=== PATIENT | female | born 1995 | race Caucasian/White ===

== ENCOUNTER → 2019-02-20 11:10 | Outpatient (CLI) | payer OTHER, SELFPAY ==
[2019-02-20 11:42] LABS: Basophils # 0.1 K/mm3 (0-0.2); Basophils % 0.2 % (0.1-2.0); Eosinophils # 0.4 K/mm3 (0.0-0.4); Eosinophils % 1.8 % (0.1-12.0); Hematocrit 45.3 % (37.0-47.0); Hemoglobin 14.2 g/dL (12.2-16.2); Lymphocytes # 3.6 K/mm3 (0.7-4.5); Lymphocytes % 18.9 % (10-50); Mean Corpuscular HGB Conc 31.4 g/dL (31.8-35.4); Mean Corpuscular Hemoglobin 27.4 pg (27.0-31.2); Mean Corpuscular Volume 87.4 fl (81-99); Mean Platelet Volume 8.3 fl (7.4-10.4); Monocytes # 1.6 K/mm3 (0.1-1.0); Monocytes % 8.3 % (1.7-9.3); Neutrophils # 13.3 K/mm3 (1.8-7.8); Neutrophils % 70.6 % (37.0-80.0); Platelet Count 466 K/mm3 (142-424); Red Blood Count 5.18 M/mm3 (4.20-5.40); Red Cell Distribution Width 13.6 % (11.5-17.5); White Blood Count 18.8 K/mm3 (4.8-10.8)
[2019-02-20 11:45] LABS: MANUAL DIFFERENTIAL MANUAL DIFFERENTIAL (MANUAL DIFF)
[2019-02-20 14:13] LABS: Alanine Aminotransferase 21 U/L (12-78); Albumin Level 3.6 gm/dL (3.4-5.0); Albumin/Globulin Ratio 0.8 (1.1-1.8); Alkaline Phosphatase 66 U/L (46-116); Anion Gap 16.3 mEq/L (5-15); Bilirubin,Total 0.3 mg/dL (0.2-1.0); Blood Urea Nitrogen 9 mg/dL (7-18); Calcium 9.6 mg/dL (8.5-10.1); Carbon Dioxide 25 mmol/L (21.0-32.0); Chloride 104 mmol/L (98-107); Creatinine,Serum 0.74 mg/dL (0.55-1.02); Estimated Glomerular Filt Rate 96 ml/min (>60); GFR (African American) 116 ML/MIN (>60); Globulin 4.3 gm/dl (1.3-3.2); Glucose 74 mg/dL (74-106); Sodium 141 mmol/L (136-145); Total Protein,Serum 7.9 gm/dL (6.4-8.2)
[2019-02-20 14:22] LABS: Aspartate Amino Transferase 15 U/L (15-37); Potassium 4.3 mmoL/L (3.5-5.1)
[2019-02-20 16:20] LABS: HCG Qualitative, Serum Negative (Negative)
[2019-02-20 16:30] LABS: Lymphocytes % 29 % (10-50); Monocytes % 11 % (2-9); Neutrophils % 60 % (42-76); Platelet Estimate Slight Increase; RBC Morphology Normal; Total Cells Counted 100
== END ==
PROVIDERS: Visit Provider Obstetrics & Gynecology
DX: Z01.818 Encounter for other preprocedural examination (principal); Z30.09 Encounter for other general counseling and advice on contraception
CPT/HCPCS: 36415; 80053; 84703; 85007; 85025

== ENCOUNTER → 2019-03-15 15:30 | Outpatient (CLI) | payer OTHER, SELFPAY ==
[2019-03-15 16:44] LABS: Basophils # 0.1 K/mm3 (0-0.2); Basophils % 0.7 % (0.1-2.0); Eosinophils # 0.4 K/mm3 (0.0-0.4); Hematocrit 43.4 % (37.0-47.0); Hemoglobin 13.1 g/dL (12.2-16.2); Lymphocytes # 3.2 K/mm3 (0.7-4.5); Lymphocytes % 25.2 % (10-50); Mean Corpuscular HGB Conc 30.2 g/dL (31.8-35.4); Mean Corpuscular Hemoglobin 27.4 pg (27.0-31.2); Mean Corpuscular Volume 90.7 fl (81-99); Mean Platelet Volume 9.7 fl (7.4-10.4); Monocytes # 0.7 K/mm3 (0.1-1.0); Monocytes % 5.6 % (1.7-9.3); Neutrophils # 8.4 K/mm3 (1.8-7.8); Neutrophils % 65.5 % (37.0-80.0); Platelet Count 408 K/mm3 (142-424); Red Blood Count 4.79 M/mm3 (4.20-5.40); Red Cell Distribution Width 14.2 % (11.5-17.5); White Blood Count 12.8 K/mm3 (4.8-10.8)
[2019-03-15 17:53] LABS: HCG Qualitative, Serum Negative (Negative)
[2019-03-15 21:06] LABS: Anion Gap 14.9 mEq/L (5-15); Blood Urea Nitrogen 8 mg/dL (7-18); Calcium 8.9 mg/dL (8.5-10.1); Carbon Dioxide 25 mmol/L (21.0-32.0); Chloride 106 mmol/L (98-107); Creatinine,Serum 0.86 mg/dL (0.55-1.02); Estimated Glomerular Filt Rate 80 ml/min (>60); GFR (African American) 97 ML/MIN (>60); Glucose 85 mg/dL (74-106); Potassium 3.9 mmoL/L (3.5-5.1); Sodium 142 mmol/L (136-145)
== END ==
PROVIDERS: Visit Provider Obstetrics & Gynecology
DX: Z01.818 Encounter for other preprocedural examination (principal)
CPT/HCPCS: 36415; 80048; 84703; 85025

== ENCOUNTER 2020-10-19 11:37 | Emergency (ER) | payer MEDICAID, SELFPAY ==
[2020-10-19 11:40] VITALS: BP 140/114; PULSE 85; RESP 18; TEMP 36.6; O2SAT 97; BMI 49.5
[2020-10-19 12:15] LABS: UTC Strep Screen (Rapid) Negative (Negative)
--- NOTE | 2020-10-19 12:21 | HMH.EDUTC ---
[facility] [place] Disposition Clinical Impression: Allergic rhinitis Qualifiers: Allergic rhinitis trigger: unspecified Allergic rhinitis seasonality: unspecified Qualified Code(s): J30.9 - Allergic rhinitis, unspecified Disposition: Home, Self-Care Condition on Discharge: Good Instructions: Sore Throat, Allergic Rhinitis Additional Instructions: *Monitor Temp, Over the counter Motrin or Tylenol as directed/as needed Tylenol every 4 hours and Motrin every 6 hours (as long as your family doctor has told you that you can take it) for fever or pain. and straight to ER if unable to lower temp less than 101.0 after medication given *Warm salt water gargles may help to soothe the throat *Throat Lozenges *Warm fluids like tea with honey may help to soothe the throat *Sleep elevated *Humidifier/Vaporizer *Flonase 2 sprays in each nostril daily but be aware that it may take 2-3 days before you notice improvement Your throat swab was sent for culture. Those results are typically sent to your primary care. Be sure to follow up in 2-3 days with your family doctor/primary care physician if no improvement so they can review those result and treat if necessary. If you don?t have a primary care doctor, I recommend you get one but in the mean time, you will have to return to a walk in clinic Follow up IMMEDIATELY for new or worsening symptoms or no Noticeable improvement over the next 48-72 hours. 911 for difficulty breathing or swallowing Prescriptions: Fluticasone Propionate [Flonase 50mcg nasal spray 16gm] 1 spr NS DAILY #1 bottle Transmission Status: Received by [id number] Referrals: Delma Cespedes [Primary Care Provider] - As needed Time of Disposition: 12:30 Medical Decision Making - Abe Inquiry Pt receiving controlled substance: No Abe was queried for this patient: No Vital Signs: 10/19/20 11:40 10/19/20 12:33 Temperature 97.9 F 97.9 F Temperature Source Oral Pulse Rate 85 Pulse Rate [Right Brachial] 85 Respiratory Rate 18 18 Blood Pressure 109/67 L Blood Pressure [Right Arm] 140/114 H Blood Pressure Mean [Right Arm] 122 Blood Pressure Source [Right Arm] Automatic Cuff Blood Pressure Position [Right Arm] Sitting 02 Sat by Pulse Oximetry 97 Oxygen Delivery Method Room Air - Lab Data Lab results reviewed: Yes: I reviewed the patient's lab results. Lab Results 10/19/20 11:38: Strep [facility] Negative Orders (Tests/Meds): ORDERS Category Date Time Status Strep Screen Confirmation Stat Micro 10/19/20 11:38 Received [facility] [place] HPI - General Stated complaint: sore throat Time Seen by Provider: 10/19/20 12:21 Mode of Arrival: Ambulatory Source of Information: Patient Limitations: No Limitations Description of Symptoms (Recalled from Triage Doc. by RN): PATIENT C/O SORE THROAT SINCE YESTERDAY HEENT Symptoms (Recalled from RN notes): Yes Resp Symptoms (Recalled from RN notes): No Skin Symptoms (Recalled from RN notes): No MS Symptoms (Recalled from RN notes): No Functional Status (Recalled from RN notes): WNL - History of Present Illness Provider Complaint: Patient state that she has seasonal allergies States that she has been having runny nose and sore throat States that she thinks it is her allergies but she was worried that she may have strep and wanted to get checked - Related Data Home Medications Medication Instructions Recorded Confirmed Cetirizine HCl [Zyrtec 10mg Tab*] 10 mg PO DAILY 10/19/20 10/19/20 Levothyroxine Sodium 150 mcg PO DAILY 10/19/20 10/19/20 [Levothyroxine 150mcg (0.15mg) Tab] amantadine HCL [Amantadine] 100 mg PO DAILY 10/19/20 10/19/20 Previous Rx's Medication Instructions Recorded Fluticasone Propionate [Flonase 1 spr NS DAILY #1 bottle 10/19/20 50mcg nasal spray 16gm] Allergies Allergy/AdvReac Type Severity Reaction Status Date / Time No Known Allergies Allergy Verified 08/02/19 09:00 - Worker's Comp Is this a Worker's Com
[2020-10-19 12:33] VITALS: BP 109/67; PULSE 85; RESP 18; TEMP 36.6; O2SAT 97
== END 2020-10-19 12:35 | disposition home or self-care (01) ==
PROVIDERS: Emergency Provider Nurse Practitioner; PCP Nurse Practitioner Family
DX: J30.9 Allergic rhinitis, unspecified (principal); E03.9 Hypothyroidism, unspecified; Z79.899 Other long term (current) drug therapy
CPT/HCPCS: 87880; 99202; G0463

== ENCOUNTER 2020-10-23 18:52 | Emergency (ER) | payer MEDICAID, SELFPAY ==
[2020-10-23 19:00] VITALS: BP 147/83; PULSE 89; RESP 20; TEMP 36.9; O2SAT 98; BMI 46.9
--- NOTE | 2020-10-23 19:49 | HMH.EDUTC ---
[facility] [place] Disposition Clinical Impression: Poison juan dermatitis Disposition: Home, Self-Care Condition on Discharge: Good Instructions: DI for Poison Juan Allergy, Prednisone Additional Instructions: Over the counter Calamine lotion applied to rash may help to dry the rash up Self-care: Keep your rash clean and dry: Wash it with soap and water. Gently pat it dry with a clean towel. Try not to scratch or rub your rash: This can cause your skin to become infected. Use a compress on your rash: Dip a clean washcloth in cool water. Wring it out and place it on your rash. Leave the washcloth on your skin for 15 minutes. Do this at least 3 times per day. Take a cornstarch or oatmeal bath: If your rash is too large to cover with wet washcloths, take 3 or 4 cornstarch baths daily. Mix 1 pound of cornstarch with a little water to make a paste. Add the paste to a tub full of water and mix well. You may also use colloidal oatmeal in the bath water. Use lukewarm water. Avoid hot water because it may cause your itching to increase. Prevent a poison juan rash in the future: Wear skin protection: Wear long pants, a long-sleeved shirt, and gloves. Use a skin block lotion to protect your skin from poison juan oil. Wash clothing after possible exposure: If you think you have been near a poison juan plant, wash the clothes you were wearing separately from other clothes. Rinse the washing machine well after you take the clothes out. Scrub boots and shoes with warm, soapy water. Dry clean items and clothing that you cannot wash in water. Poison juan oil is sticky and can stay on surfaces for a long time. It can cause a new rash even years later. Reduce exposure to poison juan: Do not touch plants that look like poison juan. Keep your yard free of poison juan. While protecting your skin, remove the plant and the roots. Place them in a plastic bag and seal the bag tightly. Do not burn poison juan plants: This can spread the oil through the air. If you breathe the oil into your lungs, you could have swelling and serious breathing problems. Oil that clings to the fire jenniffer can land on your skin and cause a rash. Start oral steriods for poison juan rash tomorrow as directed Return if needed Straight to ER if any life threatening symptoms Prescriptions: predniSONE [Prednisone 5mg Tab Dose-Pack] 5 mg PO UD DOSE PK 6 Days #21 pack Transmission Status: Received by [id number] Referrals: Delma Cespedes [Primary Care Provider] - As needed Time of Disposition: 19:59 Medical Decision Making - Abe Inquiry Pt receiving controlled substance: No Abe was queried for this patient: No Vital Signs: 10/23/20 19:00 10/23/20 20:13 Temperature 98.5 F 98.5 F Temperature Source Oral Pulse Rate 89 Pulse Rate [Right Brachial] 89 Respiratory Rate 20 20 Blood Pressure 147/83 H Blood Pressure [Right Arm] 147/83 H Blood Pressure Mean [Right Arm] 104 Blood Pressure Source [Right Arm] Automatic Cuff Blood Pressure Position [Right Arm] Sitting 02 Sat by Pulse Oximetry 98 Oxygen Delivery Method Room Air Orders (Tests/Meds): ED MEDICATIONS Discontinued Medications Generic Name Dose Route Start Last Admin Trade Name Candice PRN Reason Stop Dose Admin Methylprednisolone Sodium Succinate 125 mg 10/23/20 19:54 10/23/20 19:59 Methylprednisolone Sod Succ 125mg Vial IM 10/23/20 19:55 125 mg ONCE ONE Administration Medical Decision Narrative: Patient reports has IUD in place denies [facility] [place] HPI - General Stated complaint: rash all over body Time Seen by Provider: 10/23/20 19:49 Mode of Arrival: Ambulatory Source of Information: Patient Limitations: No Limitations Description of Symptoms (Recalled from Triage Doc. by RN): PATIENT C/O POISON JUAN TO RIGHT ARM HEENT Symptoms (Recalled from RN notes): No Resp Symptoms (Recalled from RN notes): No Skin Symptoms (Recalled from RN notes): Yes MS Symptoms (Recalled from RN notes): No Func
[2020-10-23 20:13] VITALS: BP 147/83; PULSE 89; RESP 20; TEMP 36.9; O2SAT 98
== END 2020-10-23 20:20 | disposition home or self-care (01) ==
PROVIDERS: Emergency Provider Nurse Practitioner; PCP Nurse Practitioner Family
DX: L23.7 Allergic contact dermatitis due to plants, except food (principal); E03.9 Hypothyroidism, unspecified
CPT/HCPCS: 96372; 99202; G0463

== ENCOUNTER 2021-06-08 13:30 | Emergency (ER) | payer MEDICAID, SELFPAY ==
[2021-06-08 15:40] VITALS: BP 128/85; PULSE 98; RESP 16; TEMP 36.6; O2SAT 97; BMI 48.9
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
[2021-06-08 16:09] VITALS: BP 128/85; PULSE 98; RESP 16; TEMP 36.6; O2SAT 97
== END 2021-06-08 16:14 | disposition home or self-care (01) ==
PROVIDERS: Emergency Provider Nurse Practitioner; PCP Nurse Practitioner Family
DX: H91.92 Unspecified hearing loss, left ear (principal); H61.22 Impacted cerumen, left ear; E03.9 Hypothyroidism, unspecified
CPT/HCPCS: 99202; G0463

== ENCOUNTER 2021-07-02 10:36 | Emergency (ER) | payer MEDICAID, SELFPAY ==
[2021-07-02 11:50] VITALS: BP 152/97; PULSE 114; RESP 18; TEMP 36.9; O2SAT 97; BMI 53.2
--- NOTE | 2021-07-02 12:04 | HMH.EDUTC ---
[facility] [place] Clinical Impression: Viral upper respiratory tract infection with cough Disposition: Home, Self-Care Condition on Discharge: Good Instructions: Cough Additional Instructions: *Monitor Temp, Over the counter Motrin or Tylenol as directed/as needed Tylenol every 4 hours and Motrin every 6 hours (as long as your family doctor has told you that you can take it) for fever or pain. and straight to ER if unable to lower temp less than 101.0 after medication given *Warm salt water gargles may help to soothe the throat *Throat Lozenges *Warm fluids like tea with honey may help to soothe the throat *Sleep elevated *Humidifier/Vaporizer Follow up IMMEDIATELY for new or worsening symptoms or no Noticeable improvement over the next 48-72 hours. 911 for difficulty breathing or swallowing You were tested for today for COVID19 your test result should be back in the next 48-72 hours, you may check your results on the [facility] [facility] portal If you are positive someone from the Hospital will be calling you Make sure to drink plenty of water and gatoraid and take vitamin C, D and zinc Prescriptions: Promethazine/Dextromethorphan [Promethazine-Dm Syrup] 2.5 - 5 ml PO Q6H PRN #120 ml PRN Reason: Cough Transmission Status: Pending to [id number] Referrals: Delma Cespedes [Primary Care Provider] - As needed Forms: Work/School Release Time of Disposition: 12:31 Medical Decision Making - Abe Inquiry Pt receiving controlled substance: No Abe was queried for this patient: No Vital Signs: 07/02/21 11:50 Temperature 98.4 F Temperature Source Oral Pulse Rate [Right Brachial] 114 H Respiratory Rate 18 Blood Pressure [Right Arm] 152/97 H Blood Pressure Mean [Right Arm] 115 Blood Pressure Source [Right Arm] Automatic Cuff Blood Pressure Position [Right Arm] Sitting 02 Sat by Pulse Oximetry 97 Oxygen Delivery Method Room Air Orders (Tests/Meds): ORDERS Category Date Time Status Covid-19 Nasal PCR ([facility]) Routine Lab 07/02/21 11:58 Received [facility] [place] HPI - General Stated complaint: chills, cough, congestion Time Seen by Provider: 07/02/21 12:04 Mode of Arrival: Ambulatory Source of Information: Patient Limitations: No Limitations Description of Symptoms (Recalled from Triage Doc. by RN): PATIENT C/O CHILLS, CHEST CONGESTION, FATIGUE SINCE YESTERDAY. EXPOSED TO COVID THROUGH BROTHER HEENT Symptoms (Recalled from RN notes): Yes Resp Symptoms (Recalled from RN notes): No Skin Symptoms (Recalled from RN notes): No MS Symptoms (Recalled from RN notes): No Functional Status (Recalled from RN notes): WNL - History of Present Illness Provider Complaint: Patient state that she was around brother last week that has since tested positive for COVID States that she has been feeling tired and achy and had some chest congestion but not couging anything up concerned that she may have COVID - Related Data Home Medications Medication Instructions Recorded Confirmed Cetirizine HCl [Zyrtec 10mg Tab*] 10 mg PO DAILY 10/19/20 02/12/21 Levothyroxine Sodium 150 mcg PO DAILY 10/19/20 02/12/21 [Levothyroxine 150mcg (0.15mg) Tab] amantadine HCL [Amantadine] 100 mg PO DAILY 10/19/20 02/12/21 Previous Rx's Medication Instructions Recorded levonorgestrel 20 mcg/24 hours (7 1 insert INTRAUTERI ONCE #1 each 02/12/21 yrs) 52 mg intrauterine device Promethazine/Dextromethorphan 2.5 - 5 ml PO Q6H PRN #120 ml 07/02/21 [Promethazine-Dm Syrup] Allergies Allergy/AdvReac Type Severity Reaction Status Date / Time No Known Allergies Allergy Verified 02/12/21 13:58 - Worker's Comp Is this a Worker's Comp case?: No [facility] History - Hepatitis A Screen Drug use history?: No High risk sexual behaviors?: No History of sexually transmitted infection?: No Currently employed?: No Childcare worker?: No Do you have indoor plumbing?: Yes Do you have electricity?: Yes Attestation statement:: This
[2021-07-02 12:37] VITALS: BP 152/97; PULSE 114; RESP 18; TEMP 36.9; O2SAT 97
[2021-07-02 19:01] LABS: UTC Influenza A Antigen Negative (Negative); UTC Influenza B Antigen Negative (Negative)
== END 2021-07-02 12:40 | disposition home or self-care (01) ==
PROVIDERS: Emergency Provider Nurse Practitioner; PCP Nurse Practitioner Family
DX: U07.1 COVID-19 (principal); J06.9 Acute upper respiratory infection, unspecified
CPT/HCPCS: 87804; 99202; C9803; G0463; U0003; U0005

== ENCOUNTER → 2021-09-24 13:12 | Outpatient (CLI) | payer MEDICAID, SELFPAY ==
--- NOTE | 2021-09-24 13:13 | US_ITS ---
FINAL REPORT CLINICAL HISTORY: IUD placement FINDINGS: Transvaginal sonographic images of the pelvis were obtained. The uterus is retroverted and measures 6.8 x 3.6 x 4.3 cm. The endometrium measures 6 mm, which is within normal limits. No uterine mass is identified. An IUD is in proper place within the endometrial cavity. The right ovary measures 3.1 cm in length and left ovary measures 4.3 cm in length. Normal blood flow seen to the ovaries. There is a 2.4 cm left ovarian cyst. There is no evidence of free fluid. IMPRESSION: IUD is present within the endometrial cavity. 2.4 cm left ovarian cyst. Reviewed, Interpreted and Dictated by Michael Robles III, MD Transcribed by Katiana Braxton Authenticated by Michael Robles III, MD on 09/24/2021 03:40:11 PM [facility]
== END ==
PROVIDERS: PCP Nurse Practitioner Family; Visit Provider Obstetrics & Gynecology
DX: Z30.430 Encounter for insertion of intrauterine contraceptive device (principal)
CPT/HCPCS: 76830

== ENCOUNTER 2021-10-24 14:53 | Emergency (ER) | payer MEDICAID, SELFPAY ==
[2021-10-24 15:17] VITALS: BP 141/84; PULSE 136; RESP 20; TEMP 36.8; O2SAT 98; BMI 34.4
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
[2021-10-24 16:35] VITALS: BP 141/84; PULSE 136; RESP 20; TEMP 36.8
== END 2021-10-24 16:35 | disposition home or self-care (01) ==
PROVIDERS: Emergency Provider Nurse Practitioner Family; PCP Nurse Practitioner Family
DX: K52.9 Noninfective gastroenteritis and colitis, unspecified (principal); E03.9 Hypothyroidism, unspecified; Z79.899 Other long term (current) drug therapy; Z86.73 Personal history of transient ischemic attack (TIA), and cerebral infarction without residual deficits; Z80.9 Family history of malignant neoplasm, unspecified; Z83.3 Family history of diabetes mellitus
CPT/HCPCS: 99213; G0463

== ENCOUNTER 2022-01-25 18:12 | Emergency (ER) | payer MEDICAID, SELFPAY ==
[2022-01-25 18:50] VITALS: BP 148/88; PULSE 88; RESP 18; TEMP 37.6; O2SAT 99; BMI 45.2
[2022-01-25 19:06] LABS: UTC Strep Screen (Rapid) Negative (Negative)
--- NOTE | 2022-01-25 19:19 | HMH.EDUTC ---
[facility] [place] Disposition Clinical Impression: Pharyngitis Qualifiers: Pharyngitis/tonsillitis etiology: unspecified etiology Qualified Code(s): J02.9 - Acute pharyngitis, unspecified Disposition: Home, Self-Care Condition on Discharge: Good Instructions: Strep Throat, DI for Strep Throat Additional Instructions: Drink plenty of fluids. Take tylenol or ibuprofen for pain or fever. Take the medications as directed. Follow up with your regular doctor. GO TO THE ER FOR ANY WORSENING SYMPTOMS Quarantine until you know the results of your covid-19 test. Notify your school or workplace of your results and follow their instructions regarding return to work/school. Prescriptions: Ondansetron [Zofran 4mg ODT] 4 mg PO Q8HP PRN #20 tab PRN Reason: Nausea [id number] Amoxicillin [Amoxicillin 875MG Tab] 875 mg PO Q12H #20 tab Transmission Status: Received by [id number] methylPREDNISolone [Medrol] 4 mg PO DIRECTED 6 Days #21 packet Transmission [facility]: [id number] Referrals: Delma Cespedes [Primary Care Provider] - Time of Disposition: 19:45 Medical Decision Making - Medical Records Medical records reviewed: No: I reviewed the patient's medical records. - Abe Inquiry Pt receiving controlled substance: No Vital Signs: 01/25/22 18:50 01/25/22 19:47 Temperature 99.6 F 99.6 F Temperature Source Oral Pulse Rate 88 Pulse Rate [Left Brachial] 88 Respiratory Rate 18 18 Blood Pressure 148/88 H Blood Pressure [Left Arm] 148/88 H Blood Pressure Mean [Left Arm] 108 Blood Pressure Source [Left Arm] Automatic Cuff Blood Pressure Position [Left Arm] Sitting 02 Sat by Pulse Oximetry 99 Oxygen Delivery Method Room Air - Lab Data Lab results reviewed: Yes: I reviewed the patient's lab results. Lab Results 01/25/22 19:01: Strep Scn Rapid Clinic Negative Orders (Tests/Meds): ORDERS Category Date Time Status Strep Screen Confirmation Stat Micro 01/25/22 19:01 Received [facility] [place] HPI - General Stated complaint: sore throat Time Seen by Provider: 01/25/22 19:19 Mode of Arrival: Ambulatory Source of Information: Patient Limitations: No Limitations Description of Symptoms (Recalled from Triage Doc. by RN): PATIENT C/O SORE THROAT AND THE START OF SINUS CONGESTION SINCE THIS MORNING HEENT Symptoms (Recalled from RN notes): Yes Resp Symptoms (Recalled from RN notes): No Skin Symptoms (Recalled from RN notes): No MS Symptoms (Recalled from RN notes): No Functional Status (Recalled from RN notes): WNL - History of Present Illness Provider Complaint: She has been having sore throat for the past 2 days. She was exposed to strep throat before her symptoms began. - Related Data Home Medications Medication Instructions Recorded Confirmed Cetirizine HCl [Zyrtec 10mg Tab*] 10 mg PO DAILY 10/19/20 09/18/21 Levothyroxine Sodium 150 mcg PO DAILY 10/19/20 09/18/21 [Levothyroxine 150mcg (0.15mg) Tab] amantadine HCL [Amantadine] 100 mg PO DAILY 10/19/20 09/18/21 Previous Rx's Medication Instructions Recorded levonorgestrel 20 mcg/24 hours (7 1 insert INTRAUTERI ONCE #1 each 02/12/21 yrs) 52 mg intrauterine device Ondansetron [Zofran 4mg ODT] 4 mg PO Q8HP PRN #20 tab 10/24/21 Amoxicillin [Amoxicillin 875MG 875 mg PO Q12H #20 tab 01/25/22 Tab] Ondansetron [Zofran 4mg ODT] 4 mg PO Q8HP PRN #20 tab 01/25/22 methylPREDNISolone [Medrol] 4 mg PO DIRECTED 6 Days #21 01/25/22 packet Allergies Allergy/AdvReac Type Severity Reaction Status Date / Time No Known Allergies Allergy Verified 10/24/21 15:23 - Worker's Comp Is this a Worker's Comp case?: No [facility] History - Hepatitis A Screen Attestation statement:: This patient has been screened for Hepatitis A risk factors. I have reviewed the patient's past medical history: Yes Medical History: Reports:: Transient Ischemic A
[2022-01-25 19:47] VITALS: BP 148/88; PULSE 88; RESP 18; TEMP 37.6; O2SAT 99
== END 2022-01-25 19:55 | disposition home or self-care (01) ==
PROVIDERS: Emergency Provider Nurse Practitioner Family; PCP Nurse Practitioner Family
DX: J02.9 Acute pharyngitis, unspecified (principal); Z20.822 Contact with and (suspected) exposure to COVID-19
CPT/HCPCS: 87880; 99212; C9803; G0463; U0003; U0005

== ENCOUNTER 2022-05-25 11:04 | Emergency (ER) | payer MEDICAID, SELFPAY ==
[2022-05-25 11:30] VITALS: BP 125/89; PULSE 131; RESP 20; TEMP 36.8; O2SAT 97; BMI 47.7
[2022-05-25 11:50] VITALS: BP 125/89; PULSE 131; RESP 20; TEMP 36.8; O2SAT 97
--- NOTE | 2022-05-25 12:07 | EXP.UTC ---
Discharge Plan Disposition Patient Disposition: Home, Self-Care Condition: Good Prescriptions Prescriptions: New azithromycin [Zithromax Z-Silviano] 250 mg tablet See Rx Instructions .ROUTE .COMPLEX 5 Days Qty: 6 0RF Rx Instructions: For 250 mg dose pack: take 500 mg today (day 1), then 250 mg for 4 days (days 2-5) methylprednisolone [Medrol (Silviano)] 4 mg tablets,dose pack See Rx Instructions .Route .COMPLEX 6 Days Qty: 21 0RF Rx Instructions: taper pack; No Action amantadine HCl 100 MG tablet 100 mg PO DAILY cetirizine 10 MG tablet 10 mg PO DAILY levothyroxine 150 MCG tablet 150 mcg PO DAILY Referrals Follow up/Referrals: Delma Cespedes [Primary Care Provider] - See instructions Activity Restrictions/Add. Instructions Additional Instructions/Restrictions: *Monitor Temp, Over the counter Motrin or Tylenol as directed/as needed Tylenol every 4 hours and Motrin every 6 hours (as long as your family doctor has told you that you can take it) for fever or pain. and straight to ER if unable to lower temp less than 101.0 after medication given *Warm salt water gargles may help to soothe the throat *Throat Lozenges? *Warm fluids like tea with honey may help to soothe the throat? *Sleep elevated *Humidifier/Vaporizer Follow up IMMEDIATELY for new or worsening symptoms or no Noticeable improvement over the next 48-72 hours. 911 for difficulty breathing or swallowing Clinical Impressions Clinical Impression: Sinusitis Instructions Patient Instructions: Sinusreed, DI for Sinusitis Discharge ED Provider: Fartun Gerardo [facility] General Stated complaint: Drainage, congestion, sore throat, headache Mode of Arrival: Ambulatory Source of Information: Patient Limitations: No Limitations Time Seen by Provider: 05/25/22 12:07 Description of Symptoms (Recalled from Triage Doc. by RN): PATIENT C/O SINUS PRESSURE AND HEADACHE THAT STARTED THIS MORNING HEENT Symptoms (Recalled from RN notes): Yes Resp Symptoms (Recalled from RN notes): No Skin Symptoms (Recalled from RN notes): No MS Symptoms (Recalled from RN notes): No Functional Status (Recalled from RN notes): WNL History of Present Illness Provider Complaint: Patient states that she thinks she may have a sinus infection States that she has been having sinus congestion on and off for about a week States that last night it felt like it was getting worse States that the pressure behind her eyes got worse and her mucous from her nose changed to dark yellowish green like she has with sinus infection so today when it wasnt any better she came in Related Data Home Medications Medication Instructions Recorded Confirmed amantadine HCl 100 mg tablet 100 mg PO DAILY TBI 10/19/20 05/25/22 cetirizine 10 mg tablet 10 mg PO DAILY Allergy symptoms 10/19/20 05/25/22 levothyroxine 150 mcg tablet 150 mcg PO DAILY THYROID 10/19/20 05/25/22 Previous Rx's Medication Instructions Recorded azithromycin 250 mg tablet See Rx Instructions PO .COMPLEX 5 05/25/22 (Zithromax Z-Silviano) days #6 tabs methylprednisolone 4 mg tablets in See Rx Instructions .Route 05/25/22 a dose pack (Medrol (Silviano)) .COMPLEX 6 days #21 tabs Allergies Allergy/AdvReac Type Severity Reaction Status Date / Time No Known Allergies Allergy Verified 10/24/21 15:23 Worker's Comp Is this a Worker's Comp case?: No [facility] Disclaimer: The information contained in this section may have been updated after the patient was seen, as this information can be updated by other users. Medical History (Updated 05/25/22 @ 12:14 by Fartun Gerardo APRN) Anxiety COPD (chronic obstructive pulmonary disease) Thyroid disease Surgical History (Updated 05/25/22 @ 11:38 by Shasta Grijalva RN) History of colon surgery History of mandibular surgery History of splenectomy History of tonsillectomy History of wisdom tooth extraction Social History (Upd
[2022-05-25 12:28] LABS: UTC Influenza A Antigen Negative (Negative)
[2022-05-25 12:29] LABS: UTC Influenza B Antigen Negative (Negative)
== END 2022-05-25 12:37 | disposition home or self-care (01) ==
PROVIDERS: Emergency Provider Nurse Practitioner; PCP Nurse Practitioner Family
DX: J32.9 Chronic sinusitis, unspecified (principal)
CPT/HCPCS: 87804; 99212; G0463

== ENCOUNTER 2022-07-08 09:48 | Emergency (ER) | payer BC, SELFPAY ==
[2022-07-08 10:15] VITALS: BP 130/87; PULSE 98; RESP 20; TEMP 37.2; O2SAT 97; BMI 45.9
--- NOTE | 2022-07-08 10:43 | EXP.UTC ---
Discharge Plan Disposition Patient Disposition: Home, Self-Care Condition: Good Prescriptions Prescriptions: New amoxicillin [amoxicillin] 500 mg tablet 500 mg PO TID 10 Days Qty: 30 0RF methylprednisolone 4 mg Tablets,Dose Pack 4 mg PO DIRECTED Qty: 21 0RF ajshwjnoqqresbx-scedtqkmz-CU [Bromfed DM] 2-30-10 mg/5 mL Syrup 5 ml PO Q6H PRN (Reason: Cough) Qty: 240 0RF No Action azithromycin [Zithromax Z-Silviano] 250 mg tablet See Rx Instructions .ROUTE .COMPLEX 5 Days Qty: 6 0RF Rx Instructions: For 250 mg dose pack: take 500 mg today (day 1), then 250 mg for 4 days (days 2-5) methylprednisolone [Medrol (Silviano)] 4 mg tablets,dose pack See Rx Instructions .Route .COMPLEX 6 Days Qty: 21 0RF Rx Instructions: taper pack; amantadine HCl 100 MG tablet 100 mg PO DAILY cetirizine 10 MG tablet 10 mg PO DAILY levothyroxine 150 MCG tablet 150 mcg PO DAILY Referrals Follow up/Referrals: Delma Cespedes [Primary Care Provider] - See instructions Activity Restrictions/Add. Instructions Additional Instructions/Restrictions: Drink plenty of fluids. Take tylenol or ibuprofen for pain or fever. Take the medications as directed. Follow up with your regular doctor. GO TO THE ER FOR ANY WORSENING SYMPTOMS Clinical Impressions Clinical Impression: Sinusitis, Bronchitis Instructions Patient Instructions: Sinusitis, DI for Sinusitis Discharge ED Provider: Thor Gunderson [facility] General Stated complaint: Chest congestion cough drainage Time Seen by Provider: 07/08/22 10:43 History of Present Illness Provider Complaint: She states that for the past 2 days the She has had cough, chest congestion and she has felt bad. Related Data Home Medications Medication Instructions Recorded Confirmed amantadine HCl 100 mg tablet 100 mg PO DAILY TBI 10/19/20 05/25/22 cetirizine 10 mg tablet 10 mg PO DAILY Allergy symptoms 10/19/20 05/25/22 levothyroxine 150 mcg tablet 150 mcg PO DAILY THYROID 10/19/20 05/25/22 Previous Rx's Medication Instructions Recorded azithromycin 250 mg tablet See Rx Instructions PO .COMPLEX 5 05/25/22 (Zithromax Z-Silviano) days #6 tabs methylprednisolone 4 mg tablets in See Rx Instructions .Route 05/25/22 a dose pack (Medrol (Silviano)) .COMPLEX 6 days #21 tabs amoxicillin 500 mg tablet 500 mg PO TID 10 days #30 tabs 07/08/22 nkmsaehaoutufyq-nfambqknreysaoy-TJ 5 ml PO Q6H PRN Cough #240 mL 07/08/22 2 mg-30 mg-10 mg/5 mL oral syrup (Bromfed DM) methylprednisolone 4 mg tablets in 4 mg PO DIRECTED #21 tabs 07/08/22 a dose pack Allergies Allergy/AdvReac Type Severity Reaction Status Date / Time No Known Allergies Allergy Verified 07/08/22 10:52 [facility] Disclaimer: The information contained in this section may have been updated after the patient was seen, as this information can be updated by other users. Medical History Anxiety COPD (chronic obstructive pulmonary disease) Thyroid disease Surgical History History of colon surgery History of mandibular surgery History of splenectomy History of tonsillectomy History of wisdom tooth extraction Social History Smoking Status: Never smoker second hand exposure: No alcohol intake: never substance use type: denies use current occupational status: other Travel in the last 8 weeks: None household members: significant other housing: house caffeine: Yes ROS Obtained: Yes All systems reviewed & no additional complaints except as documented Constitutional Constitutional: Reports chills and Reports fever(s) Eyes Eyes: Denies eye discharge ENT Ears, Nose, Mouth, and Throat: Reports as per HPI Cardiovascular Cardiovascular: Denies chest pain Respiratory Respiratory: Denies chest congestion and Reports cou
[2022-07-08 11:40] VITALS: BP 130/87; PULSE 98; RESP 20; TEMP 37.2; O2SAT 97
== END 2022-07-08 11:40 | disposition home or self-care (01) ==
PROVIDERS: Emergency Provider Nurse Practitioner Family; PCP Nurse Practitioner Family
DX: J40 Bronchitis, not specified as acute or chronic (principal); J32.9 Chronic sinusitis, unspecified
CPT/HCPCS: 99212; 99213; G0463

== ENCOUNTER 2023-02-12 19:29 | Emergency (ER) | payer MEDICAID, SELFPAY ==
[2023-02-12 19:45] VITALS: BP 137/68; PULSE 68; RESP 18; TEMP 36.9; O2SAT 100; BMI 49.0
[2023-02-12 19:53] LABS: Microscopic, Urine URINE MICROSCOPIC (MICROSCOPIC)
--- NOTE | 2023-02-12 19:54 | EXP.UTC ---
Discharge Plan Disposition Patient Disposition: Home, Self-Care Condition: Good Prescriptions Prescriptions: New prednisone 10 mg tablet 10 mg PO BID 4 Days Qty: 8 0RF amoxicillin [amoxicillin] 875 mg tablet 875 mg PO Q12H Qty: 20 0RF caxwhrpxjrrsrph-txxyojjvd-PL [Bromfed DM] 2-30-10 mg/5 mL Syrup 5 ml PO Q6H PRN (Reason: Cough) Qty: 240 0RF cyclobenzaprine 10 mg Tablet 10 mg PO BID PRN (Reason: Muscle Spasm) Qty: 20 0RF No Action fexofenadine 180 mg tablet 180 mg PO DAILY Mirena 21 mcg/24 hours (8 yrs) 52 mg intrauterine device 21 mcg intrauterine DIRECTED amantadine HCl 100 MG tablet 100 mg PO DAILY levothyroxine 150 MCG tablet 150 mcg PO DAILY Referrals Follow up/Referrals: Delma Cespedes [Primary Care Provider] - See instructions Activity Restrictions/Add. Instructions Additional Instructions/Restrictions: Drink plenty of fluids. Take tylenol or ibuprofen for pain or fever. Take the medications as directed. Follow up with your regular doctor. GO TO THE ER FOR ANY WORSENING SYMPTOMS Clinical Impressions Clinical Impression: Pharyngitis Instructions Patient Instructions: Sore Throat, DI for Pharyngitis/Tonsillopharyngitis -- Adult, DI for Viral Syndrome Discharge ED Provider: Thor Gunderson [facility] General Stated complaint: sore throat back pain Time Seen by Provider: 02/12/23 19:54 History of Present Illness Provider Complaint: she states that for the past 3 days she has had low back pain and sore throat. Related Data Home Medications Medication Instructions Recorded Confirmed amantadine HCl 100 mg tablet 100 mg PO DAILY TBI 10/19/20 02/12/23 levothyroxine 150 mcg tablet 150 mcg PO DAILY THYROID 10/19/20 02/12/23 fexofenadine 180 mg tablet 180 mg PO DAILY allergies 11/04/22 02/12/23 levonorgestrel 21 mcg/24 hours (8 21 mcg intrauterine DIRECTED . 11/04/22 02/12/23 yrs) 52 mg intrauterine device (Mirena) Previous Rx's Medication Instructions Recorded amoxicillin 875 mg tablet 875 mg PO Q12H #20 tabs 02/12/23 xrfvzwsehpzfgiz-iefkrtefcxhorou-IT 5 ml PO Q6H PRN Cough #240 mL 02/12/23 2 mg-30 mg-10 mg/5 mL oral syrup (Bromfed DM) prednisone 10 mg tablet 10 mg PO BID 4 days #8 tabs 02/12/23 cyclobenzaprine 10 mg tablet 10 mg PO BID PRN Muscle Spasm #20 02/13/23 tabs Allergies Allergy/AdvReac Type Severity Reaction Status Date / Time No Known Allergies Allergy Verified 02/12/23 19:55 [facility] Disclaimer: The information contained in this section may have been updated after the patient was seen, as this information can be updated by other users. Medical History Anxiety COPD (chronic obstructive pulmonary disease) Thyroid disease Surgical History History of colon surgery History of mandibular surgery History of splenectomy History of tonsillectomy History of wisdom tooth extraction Family History Other Cancer Diabetes Thyroid disorder Social History Smoking Status: Never smoker second hand exposure: No alcohol intake: never substance use type: denies use current occupational status: other Travel in the last 8 weeks: None household members: significant other housing: house caffeine: Yes ROS Obtained: Yes All systems reviewed & no additional complaints except as documented Constitutional Constitutional: Reports chills and Reports fever(s) Eyes Eyes: Denies eye discharge ENT Ears, Nose, Mouth, and Throat: Reports as per HPI Cardiovascular Cardiovascular: Denies chest pain Respiratory Respiratory: Denies chest congestion and Reports cough Gastrointestinal Gastrointestingal: Reports nausea; Denies abdominal pain, constipation, cramping, diarrhea or vomiting Muscul
[2023-02-12 20:05] LABS: UTC Strep Screen (Rapid) Negative (Negative)
[2023-02-12 20:10] LABS: Appearance,Urine CLEAR (Clear); Bilirubin,Urine Negative (Negative); Blood, Urine Negative (Negative); Color,Urine YELLOW (Yellow); Glucose,Urine (UA) Negative (Negative); Ketones,Urine Negative (Negative); Leukocyte Esterase,Urine Negative (Negative); Nitrate,Urine Negative (Negative); Protein,Urine Negative (Negative); Specific Gravity, Urine >= 1.030 (1.005-1.030)
[2023-02-12 20:23] VITALS: BP 137/68; PULSE 68; RESP 18; TEMP 36.9; O2SAT 100
[2023-02-12 20:25] LABS: Bacteria,Urine 1+ /lpf; RBC,Urine Occasional #/hpf (0-3); Squamous Epithelial Cell,Urine 20-50 #/hpf (0-5); WBC,Urine Occasional #/hpf (0-3)
== END 2023-02-12 20:23 | disposition home or self-care (01) ==
PROVIDERS: Emergency Provider Nurse Practitioner Family; PCP Nurse Practitioner Family
DX: J02.9 Acute pharyngitis, unspecified (principal); M54.59 Other low back pain; J44.9 Chronic obstructive pulmonary disease, unspecified; E03.9 Hypothyroidism, unspecified; F41.9 Anxiety disorder, unspecified
CPT/HCPCS: 81001; 87086; 87880; 99212; 99214; G0463

== ENCOUNTER 2023-08-03 13:58 | Emergency (ER) | payer MEDICAID, SELFPAY ==
[2023-08-03 14:20] VITALS: BP 144/78; PULSE 67; RESP 19; TEMP 36.6; O2SAT 98; BMI 50.1
--- NOTE | 2023-08-03 14:36 | EXP.UTC ---
Discharge Plan Disposition Patient Disposition: Home, Self-Care Condition: Good Prescriptions Prescriptions: New amoxicillin 875 mg tablet 875 mg PO Q12H Qty: 20 0RF fluticasone propionate [Flonase Allergy Relief] 50 mcg/actuation spray,suspension 2 spray intranasal DAILY Qty: 16 0RF Rx Instructions: administer into each nostril daily No Action fexofenadine 180 mg tablet 180 mg PO DAILY Mirena 21 mcg/24 hours (8 yrs) 52 mg intrauterine device 21 mcg intrauterine DIRECTED amantadine HCl 100 MG tablet 100 mg PO DAILY levothyroxine 150 MCG tablet 150 mcg PO DAILY Referrals Follow up/Referrals: Delma Cespedes [Primary Care Provider] - See instructions Activity Restrictions/Add. Instructions Additional Instructions/Restrictions: Take medication as prescribed Follow up with your Family Doctor if no improvement or any worsening of symptoms Over the counter Motrin and/or Tylenol for pain Use Flonase as prescribed Clinical Impressions Clinical Impression: Otitis media Qualifiers: Otitis media type: unspecified Laterality: left Qualified Code(s): H66.92 - Otitis media, unspecified, left ear Instructions Patient Instructions: Middle Ear Infection Discharge ED Provider: Fartun Gerardo [facility] General Stated complaint: clogged L ear Mode of Arrival: Ambulatory Source of Information: Patient Limitations: No Limitations Time Seen by Provider: 08/03/23 14:36 Description of Symptoms (Recalled from Triage Doc. by RN): L ear feels clogged HEENT Symptoms (Recalled from RN notes): Yes Resp Symptoms (Recalled from RN notes): No Skin Symptoms (Recalled from RN notes): No MS Symptoms (Recalled from RN notes): No Functional Status (Recalled from RN notes): n/a History of Present Illness Provider Complaint: Patient states that she feels like her left ear is clogged and full States that she cannot hear out of it and has pressure in it so today she came in to get it checked Related Data Home Medications Medication Instructions Recorded Confirmed amantadine HCl 100 mg tablet 100 mg PO DAILY TBI 10/19/20 08/03/23 levothyroxine 150 mcg tablet 150 mcg PO DAILY THYROID 10/19/20 08/03/23 fexofenadine 180 mg tablet 180 mg PO DAILY allergies 11/04/22 08/03/23 levonorgestrel 21 mcg/24 hours (8 21 mcg intrauterine DIRECTED . 11/04/22 08/03/23 yrs) 52 mg intrauterine device (Mirena) Previous Rx's Medication Instructions Recorded amoxicillin 875 mg tablet 875 mg PO Q12H #20 tabs 08/03/23 fluticasone propionate 50 2 spray intranasal DAILY #16 grams 08/03/23 mcg/actuation nasal spray,suspension (Flonase Allergy Relief) Allergies Allergy/AdvReac Type Severity Reaction Status Date / Time No Known Allergies Allergy Verified 08/03/23 14:27 Worker's Comp Is this a Worker's Comp case?: No PFSH PFS Disclaimer: The information contained in this section may have been updated after the patient was seen, as this information can be updated by other users. Medical History Anxiety COPD (chronic obstructive pulmonary disease) Thyroid disease Surgical History History of colon surgery History of mandibular surgery History of splenectomy History of tonsillectomy History of wisdom tooth extraction Family History Other Cancer Diabetes Thyroid disorder Social History Smoking Status: Never smoker second hand exposure: No alcohol intake: never substance use type: denies use current occupational status: other Travel in the last 8 weeks: None household members: significant other housing: house caffeine: Yes ROS Obtained: Yes All systems reviewed & no additional complaints except as documented and Yes Systems reviewed as appropriate & no additional complaints except as documented Constitutional Constitutional: Reports system reviewed and no additional complaints, except as documented and Reports as per HPI ENT Ears, Nose, Mouth, and Throat: Reports system reviewed and no additional complaints, except as documented, Reports as per HPI and Reports otalgia Cardiovascular Cardiovascular: Reports system reviewed and no additional complaints, except as documented and Reports as per HPI Respiratory Respiratory: Reports system reviewed and no additional complaints, except as documented and Reports as per HPI Gastrointestinal Gastrointestingal: Reports system reviewed and no additional complaints, except as documented and as per HPI Physical Exam General General appearance: alert and in no apparent distress ENT ENT exam: Present mucous membranes moist Expanded ENT Exam TM/Canal exam: Left TM: erythema and bulging Respiratory Respiratory exam: Present normal lung sounds bilaterally; Absent respiratory distress or wheezes Cardiovascular Cardiovascular exam: Present regular rate, normal rhythm and normal heart sounds Neurological Exam Neurological exam: Present alert, oriented X3 and normal gait Medical Decision Making Abe Inquiry Pt receiving controlled substance: No Abe was queried for this patient: No Vital Signs: 08/03/23 14:20 Temperature 97.8 F Temperature Source Oral Pulse Rate [Right Radial] 67 Respiratory Rate 19 Blood Pressure [Right Arm] 144/78 H Blood Pressure Mean [Right Arm] 100 Blood Pressure Source [Right Arm] Automatic Cuff Blood Pressure Position [Right Arm] Sitting 02 Sat by Pulse Oximetry 98 Oxygen Delivery Method Room Air
[2023-08-03 14:51] VITALS: BP 144/78; PULSE 67; RESP 19; TEMP 36.6; O2SAT 98
== END 2023-08-03 14:52 | disposition home or self-care (01) ==
PROVIDERS: Emergency Provider Nurse Practitioner; PCP Nurse Practitioner Family
DX: H66.92 Otitis media, unspecified, left ear (principal)
CPT/HCPCS: 99212; 99214; G0463

== ENCOUNTER 2023-11-01 13:38 | Emergency (ER) | payer MEDICAID, SELFPAY ==
[2023-11-01 13:50] VITALS: BP 116/74; PULSE 66; RESP 18; TEMP 36.6; O2SAT 96; BMI 45.9
--- NOTE | 2023-11-01 13:50 | ED_ITS ---
Discharge Plan Disposition Patient Disposition: Home, Self-Care Condition: Good Prescriptions Prescriptions: New fluconazole [Diflucan] 100 mg tablet 100 mg PO DAILY 3 Days Qty: 3 0RF No Action fexofenadine 180 mg tablet 180 mg PO DAILY Mirena 21 mcg/24 hours (8 yrs) 52 mg intrauterine device 21 mcg intrauterine DIRECTED fluticasone propionate [Flonase Allergy Relief] 50 mcg/actuation spray,suspension 2 spray intranasal DAILY Qty: 16 0RF Rx Instructions: administer into each nostril daily amantadine HCl 100 MG tablet 100 mg PO DAILY Referrals Follow up/Referrals: Delma Cespedes [Primary Care Provider] - See instructions Activity Restrictions/Add. Instructions Additional Instructions/Restrictions: Drink plenty of fluids. Take tylenol or ibuprofen for pain or fever. Take the medications as directed. Follow up with your regular doctor. GO TO THE ER FOR ANY WORSENING SYMPTOMS Clinical Impressions Clinical Impression: Oral thrush Instructions Patient Instructions: DI for Thrush, Nystatin Discharge ED Provider: Thor Gunderson [facility] General Stated complaint: sore throat Time Seen by Provider: 11/01/23 13:50 History of Present Illness Provider Complaint: She states that she has had irritation and a whitish coating on her tongue for the past 3 days. She was recently on antibiotics. Related Data Home Medications Medication Instructions Recorded Confirmed amantadine HCl 100 mg tablet 100 mg PO DAILY TBI 10/19/20 11/01/23 fexofenadine 180 mg tablet 180 mg PO DAILY allergies 11/04/22 11/01/23 levonorgestrel 21 mcg/24 hr (up to 21 mcg intrauterine DIRECTED . 11/04/22 11/01/23 8 years) 52 mg intrauterine device (Mirena) Previous Rx's Medication Instructions Recorded fluticasone propionate 50 2 spray intranasal DAILY #16 grams 08/03/23 mcg/actuation nasal spray,suspension (Flonase Allergy Relief) fluconazole 100 mg tablet 100 mg PO DAILY 3 days #3 tabs 11/01/23 (Diflucan) Allergies Allergy/AdvReac Type Severity Reaction Status Date / Time No Known Allergies Allergy Verified 11/01/23 13:59 [facility] Disclaimer: The information contained in this section may have been updated after the patient was seen, as this information can be updated by other users. Medical History Anxiety COPD (chronic obstructive pulmonary disease) Thyroid disease Surgical History History of colon surgery History of mandibular surgery History of splenectomy History of tonsillectomy History of wisdom tooth extraction Family History Other Cancer Diabetes Thyroid disorder Social History Smoking Status: Never smoker second hand exposure: No alcohol intake: never substance use type: denies use current occupational status: other Travel in the last 8 weeks: None household members: significant other housing: house caffeine: Yes ROS Obtained: Yes All systems reviewed & no additional complaints except as documented Constitutional Constitutional: Denies chills and Denies fever(s) Eyes Eyes: Denies eye discharge ENT Ears, Nose, Mouth, and Throat: Reports as per HPI, Denies dizziness, Denies otalgia and Reports sore throat Cardiovascular Cardiovascular: Denies chest pain Respiratory Respiratory: Denies shortness of breath, Denies chest congestion, Denies cough, Denies stridor and Denies wheezing Gastrointestinal Gastrointestingal: Denies nausea or vomiting Musculoskeletal Musculoskeletal: Reports system reviewed and no additional complaints, except as documented and Denies arthralgias Integumentary/Breasts Skin/Breast: Denies rash Neurologic Neurologic: Denies dizziness and Denies paresthesias Allergic/Immunologic Allergic/Immunologic: Denies wheezing Physical Exam General General appearance: alert and in no apparent distress Head Head exam: atraumatic, normocephalic and normal inspection Eye Eye exam: Present normal appearance, PERRL and EOMI ENT ENT exam: Present mucous membranes moist, TM's normal bilaterally and normal external ear exam Expanded ENT Exam Nose exam: Absent sinus tenderness Nasal speculum exam: Bilateral: normal Mouth exam: Present other (whitish coating noted on tongue and inside of cheeks. ); Absent drooling Neck Neck exam: Present normal inspection, full ROM and trachea midline; Absent meningismus or lymphadenopathy Chest Chest inspection: Present normal inspection and symmetric chest wall rise; Absent tenderness Respiratory Respiratory exam: Present normal lung sounds bilaterally; Absent respiratory distress Cardiovascular Cardiovascular exam: Present regular rate and normal rhythm; Absent JVD Abdominal Exam Abdominal exam: Present soft and normal bowel sounds; Absent distention, tenderness or guarding Extremities Exam Extremities exam: Present normal inspection, full ROM and normal capillary refill; Absent calf tenderness Back Exam Back exam: Present normal inspection; Absent tenderness Neurological Exam Neurological exam: Present alert and oriented X3 Psychiatric Psychiatric exam: Present normal affect and normal mood Skin Skin exam: Present warm, dry, intact and normal color Lymphatic Lymphatic Findings: no adenopathy Medical Decision Making Medical Records Medical records reviewed: No I reviewed the patient's medical records. Abe Inquiry Pt receiving controlled substance: No
[2023-11-01 14:36] VITALS: BP 116/74; PULSE 66; RESP 18; TEMP 36.6; O2SAT 96
== END 2023-11-01 14:36 | disposition home or self-care (01) ==
PROVIDERS: Emergency Provider Nurse Practitioner Family; PCP Nurse Practitioner Family
DX: B37.0 Candidal stomatitis (principal)
CPT/HCPCS: 99212; 99214; G0463

== ENCOUNTER 2024-03-05 14:54 | Emergency (ER) | payer MEDICAID, SELFPAY ==
[2024-03-05 15:30] VITALS: BP 118/84; PULSE 108; RESP 20; TEMP 36.6; O2SAT 97; BMI 46.2
--- NOTE | 2024-03-05 15:37 | ED_ITS ---
Discharge Plan Disposition Patient Disposition: Home, Self-Care Condition: Good Prescriptions Prescriptions: New metronidazole 500 mg tablet 500 mg PO BID 7 Days Qty: 14 0RF No Action amantadine HCl 100 mg tablet 100 mg PO DAILY Patient Comments: TAKE 1 TABLET BY MOUTH ONCE DAILY IN THE MORNING fexofenadine 180 mg tablet 180 mg PO DAILY Patient Comments: TAKE 1 TABLET BY MOUTH ONCE DAILY levothyroxine 150 mcg tablet 150 mcg PO DAILY Patient Comments: TAKE 1 TABLET BY MOUTH ONCE DAILY ON AN EMPTY STOMACH 30 MINUTES BEFORE BREAKFAST Referrals Follow up/Referrals: Delma Cespedes [Primary Care Provider] - See instructions Activity Restrictions/Add. Instructions Additional Instructions/Restrictions: Drink plenty of fluids. Take tylenol or ibuprofen for pain or fever. Take the medications as directed. Avoid sun exposure while you are on this medication. Don't drink alcohol while you are taking the metronidazole. Follow up with your regular doctor. GO TO THE ER FOR ANY WORSENING SYMPTOMS We will culture the urine. That will tell what bacteria is causing your infection and which antibiotics will treat it best.This test takes 3 days to complete. Clinical Impressions Clinical Impression: UTI (urinary tract infection) Stand Alone Forms Stand Alone Forms: Work/School Release Instructions Patient Instructions: Urine Culture, DI for Urinary Tract Infection (UTI), Metronidazole, DI for Trichomoniasis Print Language Print Language: Yemeni Discharge ED Provider: Thor Gunderson [facility] General Stated complaint: Pain and frequent Time Seen by Provider: 03/05/24 15:37 Related Data Home Medications ?Medication ?Instructions ?Recorded ?Confirmed amantadine HCl 100 mg tablet 100 mg PO DAILY 03/05/24 03/05/24 fexofenadine 180 mg tablet 180 mg PO DAILY 03/05/24 03/05/24 levothyroxine 150 mcg tablet 150 mcg PO DAILY 03/05/24 03/05/24 Previous Rx's ?Medication ?Instructions ?Recorded metronidazole 500 mg tablet 500 mg PO BID 7 days #14 tabs 03/05/24 Allergies Allergy/AdvReac Type Severity Reaction Status Date / Time No Known Allergies Allergy Verified 11/01/23 13:59 [facility] Disclaimer: The information contained in this section may have been updated after the patient was seen, as this information can be updated by other users. Medical History Anxiety COPD (chronic obstructive pulmonary disease) Thyroid disease Surgical History History of colon surgery History of mandibular surgery History of splenectomy History of tonsillectomy History of wisdom tooth extraction Family History Other Cancer Diabetes Thyroid disorder Social History Smoking Status: Never smoker second hand exposure: No alcohol intake: never substance use type: denies use current occupational status: other Travel in the last 8 weeks: None household members: significant other housing: house caffeine: Yes ROS Obtained: Yes All systems reviewed & no additional complaints except as documented Constitutional Constitutional: Reports system reviewed and no additional complaints, except as documented, Denies chills and Denies fever(s) Eyes Eyes: Denies eye discharge ENT Ears, Nose, Mouth, and Throat: Denies dysphagia, Denies sore throat and Denies throat swelling Cardiovascular Cardiovascular: Denies chest pain and Denies dyspnea Respiratory Respiratory: Denies chest congestion, Denies cough and Denies dyspnea Gastrointestinal Gastrointestingal: Denies abdominal pain, constipation, diarrhea, dysphagia, nausea or vomiting Genitourinary Female Genitourinary: Reports as per HPI, Reports dysuria, Reports urinary frequency, Denies urinary incontinence, Reports urinary hesitancy and Reports urinary urgency Musculoskeletal Musculoskeletal: Denies arthralgias and Reports back pain Integumentary/Breasts Skin/Breast: Denies rash Neurologic Neurologic: Denies paresthesias Allergic/Immunologic Allergic/Immunologic: Denies throat swelling Physical Exam General General appearance: alert and in no apparent distress Head Head exam: atraumatic and normocephalic Eye Eye exam: Present normal appearance, PERRL and EOMI ENT ENT exam: Present normal exam, mucous membranes moist, TM's normal bilaterally and normal external ear exam Neck Neck exam: Present normal inspection, full ROM and trachea midline; Absent tenderness, meningismus or lymphadenopathy Chest Chest inspection: Present normal inspection and symmetric chest wall rise; Absent tenderness Respiratory Respiratory exam: Present normal lung sounds bilaterally; Absent respiratory distress, wheezes or stridor Cardiovascular Cardiovascular exam: Present regular rate, normal rhythm and normal heart sounds Abdominal Exam Abdominal exam: Present soft and normal bowel sounds; Absent distention, tenderness, guarding, rebound, rigidity, incision, psoas sign, obturator sign, heel tap sign, Nevarez's sign, Rovsing's sign or tenderness at McBurney's Point Extremities Exam Extremities exam: Present normal inspection, full ROM and normal capillary refill; Absent tenderness, edema, joint swelling, calf tenderness or cyanosis Back Exam Back exam: Present normal inspection and full ROM; Absent tenderness, CVA tenderness (R) or CVA tenderness (L) Neurological Exam Neurological exam: Present alert, oriented X3 and normal gait Psychiatric Psychiatric exam: Present normal affect and normal mood Skin Skin exam: Present warm, dry, intact and normal color Lymphatic Lymphatic Findings: no adenopathy Medical Decision Making Medical Records Medical records reviewed: No I reviewed the patient's medical records. Screening: Per USPSTF and CDC recommendations, given the prevalence of disease in our region, it is our hospital?s policy to screen for HIV and viral Hepatitis for all patients aged 18 and over and those with ongoing risk factors. Abe Inquiry Pt receiving controlled substance: No Lab Data Lab results reviewed: Yes I reviewed the patient's lab results.
[2024-03-05 16:08] LABS: Microscopic, Urine URINE MICROSCOPIC (MICROSCOPIC)
[2024-03-05 16:20] LABS: Appearance,Urine CLEAR (Clear); Bilirubin,Urine Negative (Negative); Blood, Urine Negative (Negative); Color,Urine YELLOW (Yellow); Glucose,Urine (UA) Negative (Negative); Ketones,Urine Negative (Negative); Leukocyte Esterase,Urine 2+ (Negative); Nitrate,Urine Negative (Negative); Protein,Urine Negative (Negative); Specific Gravity, Urine 1.025 (1.005-1.030)
[2024-03-05 16:30] VITALS: BP 118/84; PULSE 108; RESP 20; TEMP 36.6; O2SAT 97
[2024-03-05 16:33] LABS: Bacteria,Urine 2+ /lpf
[2024-03-05 16:34] LABS: Trichomonas,Urine 4+ /lpf
[2024-03-07 22:00] LABS: Neisseria gonorrhoeae, NAA Negative (Negative)
== END 2024-03-05 17:00 | disposition home or self-care (01) ==
PROVIDERS: Emergency Provider Nurse Practitioner Family; PCP Nurse Practitioner Family
DX: N39.0 Urinary tract infection, site not specified (principal); B96.89 Other specified bacterial agents as the cause of diseases classified elsewhere; R35.0 Frequency of micturition
CPT/HCPCS: 81001; 87086; 87491; 87591; 99212; 99214; G0463

== ENCOUNTER 2024-03-28 12:08 | Emergency (ER) | payer MEDICAID, SELFPAY ==
[2024-03-28 12:35] VITALS: BP 128/86; PULSE 114; RESP 20; TEMP 36.9; O2SAT 98; BMI 45.6
[2024-03-28 12:47] LABS: UTC Strep Screen (Rapid) Negative (Negative)
--- NOTE | 2024-03-28 13:20 | ED_ITS ---
Discharge Plan Disposition Patient Disposition: Home, Self-Care Condition: Good Prescriptions Prescriptions: New azithromycin 250 mg tablet 250 mg PO DIRECTED Qty: 6 0RF Rx Instructions: Take two (2) tablets on day #1, then one (1) tablet day #2 thru #5 No Action amantadine HCl 100 mg tablet 100 mg PO DAILY Patient Comments: TAKE 1 TABLET BY MOUTH ONCE DAILY IN THE MORNING fexofenadine 180 mg tablet 180 mg PO DAILY Patient Comments: TAKE 1 TABLET BY MOUTH ONCE DAILY levothyroxine 150 mcg tablet 150 mcg PO DAILY Patient Comments: TAKE 1 TABLET BY MOUTH ONCE DAILY ON AN EMPTY STOMACH 30 MINUTES BEFORE BREAKFAST Referrals Follow up/Referrals: Delma Cespedes [Primary Care Provider] - See instructions Activity Restrictions/Add. Instructions Additional Instructions/Restrictions: Start antibiotics today be sure to take it as ordered with the full length of time although you should start feeling better in 24-48 hours. Change toothbrush and toothpaste 24-48 hours after starting antibiotics Tylenol or Motrin as needed for fever or pain Encourage fluids, water, Gatorade, Powerade, try cold fluids, popsicles, ice cream will make it feel better You are contagious for 24 hours. Avoid kissing anyone, no eating or drinking after anyone. You are contagious. Follow-up the ER for new or worsening symptoms or no noticeable improvement over the next 24-48 hours. Follow-up with PCP this week. Clinical Impressions Clinical Impression: Strep sore throat Instructions Patient Instructions: DI for Strep Throat Print Language Print Language: Hungarian Discharge ED Provider: Silvia ([facility])Yessy [facility] [place] H[place] General Stated complaint: sore throat, Mode of Arrival: Ambulatory Source of Information: Patient Limitations: No Limitations Time Seen by Provider: 03/28/24 13:19 Description of Symptoms (Recalled from Triage Doc. by RN): PATIENT C/O SORE THROAT AND CONGESTION SINCE YESTERDAY HEENT Symptoms (Recalled from RN notes): Yes Resp Symptoms (Recalled from RN notes): No Skin Symptoms (Recalled from RN notes): No MS Symptoms (Recalled from RN notes): No Functional Status (Recalled from RN notes): WNL History of Present Illness Provider Complaint: 28-year-old female presents for sore throat and congestion. Patient states feels like her normal strep throat. Related Data Home Medications ?Medication ?Instructions ?Recorded ?Confirmed amantadine HCl 100 mg tablet 100 mg PO DAILY 03/05/24 03/28/24 fexofenadine 180 mg tablet 180 mg PO DAILY 03/05/24 03/28/24 levothyroxine 150 mcg tablet 150 mcg PO DAILY 03/05/24 03/28/24 Previous Rx's ?Medication ?Instructions ?Recorded azithromycin 250 mg tablet 250 mg PO DIRECTED #6 tabs 03/28/24 Allergies Allergy/AdvReac Type Severity Reaction Status Date / Time No Known Allergies Allergy Verified 11/01/23 13:59 Worker's Comp Is this a Worker's Comp case?: No [facility] Disclaimer: The information contained in this section may have been updated after the patient was seen, as this information can be updated by other users. Medical History , MEDICAL HOUSEKEEPER) Anxiety Thyroid disease COPD (chronic obstructive pulmonary disease) Surgical History , MEDICAL HOUSEKEEPER) History of tonsillectomy History of wisdom tooth extraction History of colon surgery History of mandibular surgery History of splenectomy Family History , MEDICAL HOUSEKEEPER) Diabetes Cancer Thyroid disorder Social History , MEDICAL HOUSEKEEPER) Smoking Status: Never smoker second hand exposure: No alcohol intake: never substance use type: denies use current occupational status: other Travel in the last 8 weeks: None household members: significant other housing: house caffeine: Yes ROS Obtained: Yes Systems reviewed as appropriate & no additional complaints except as documented ENT Ears, Nose, Mouth, and Throat: Reports system reviewed and no additional complaints, except as documented, Reports as per HPI, Reports nasal congestion and Reports sore throat Physical Exam General General appearance: alert and in no apparent distress Eye Eye exam: Present normal appearance and PERRL ENT ENT exam: Present mucous membranes moist Expanded ENT Exam Throat exam: Present tonsillar erythema, tonsillomegaly and tonsillar exudate Respiratory Respiratory exam: Present normal lung sounds bilaterally Cardiovascular Cardiovascular exam: Present regular rate and normal rhythm Neurological Exam Neurological exam: Present alert and oriented X3 Skin Skin exam: Present warm and intact Medical Decision Making Medical Records Medical records reviewed: Yes I reviewed the patient's medical records. Screening: Per USPSTF and CDC recommendations, given the prevalence of disease in our region, it is our hospital?s policy to screen for HIV and viral Hepatitis for all patients aged 18 and over and those with ongoing risk factors. Abe Inquiry Pt receiving controlled substance: No Abe was queried for this patient: No Vital Signs: 03/28/24 12:35 Temperature 98.5 F Temperature Source Oral Pulse Rate [Left Brachial] 114 H Respiratory Rate 20 Blood Pressure [Left Arm] 128/86 Blood Pressure Mean [Left Arm] 100 Blood Pressure Source [Left Arm] Automatic Cuff Blood Pressure Position [Left Arm] Sitting 02 Sat by Pulse Oximetry 98 Oxygen Delivery Method Room Air Lab Data Lab results reviewed: Yes I reviewed the patient's lab results. Lab Results 03/28/24 12:34: Strep Scn Rapid Clinic Negative Orders (Tests/Meds): ORDERS Category Date Time Status Strep Screen Confirmation Stat Micro 03/28/24 12:34 Received
[2024-03-28 13:28] VITALS: BP 128/86; PULSE 114; RESP 20; TEMP 36.9; O2SAT 98
== END 2024-03-28 13:30 | disposition home or self-care (01) ==
PROVIDERS: Emergency Provider Nurse Practitioner Family; PCP Nurse Practitioner Family
DX: J02.0 Streptococcal pharyngitis (principal)
CPT/HCPCS: 87880; 99213; G0381

== ENCOUNTER 2024-08-15 15:19 | Outpatient (CLI) | payer MEDICAID, SELFPAY ==
[2024-08-15 20:34] LABS: Microscopic, Urine URINE MICROSCOPIC (MICROSCOPIC)
[2024-08-15 22:47] LABS: Color,Urine Yellow (Yellow)
[2024-08-15 22:48] LABS: Appearance,Urine Clear (Clear); Blood, Urine Negative (Negative); Glucose,Urine (UA) Negative (Negative); Ketones,Urine Trace (Negative); Leukocyte Esterase,Urine Negative (Negative); Nitrate,Urine Negative (Negative); Specific Gravity, Urine >= 1.030 (1.005-1.030)
[2024-08-15 23:20] LABS: WBC,Urine 20-50 #/hpf (0-3)
[2024-08-15 23:21] LABS: Bacteria,Urine 3+ /lpf; Calcium Oxalate Crystals,Urine 1+ /lpf; Mucus,Urine 1+ /lpf
[2024-08-19 09:14] LABS: Neisseria gonorrhoeae, NAA Negative (Negative)
== END 2024-08-15 23:59 | disposition home or self-care (01) ==
LOC: LAB.DROPOF 08-16 10:55
PROVIDERS: PCP Nurse Practitioner; Visit Provider Nurse Practitioner
DX: R30.0 Dysuria (principal)
CPT/HCPCS: 81001; 87086; 87491; 87591